=== PATIENT | female | born 1980 | race African-American/Black ===

== ENCOUNTER 2017-02-26 21:37 | Emergency (ER) | payer OTHER ==
[~2017-02-26] VITALS: Ht 157.5 cm; Wt 54.4 kg
[2017-02-26] MEDS ORDERED: IV NORMAL SALINE 1,000ML 1,000 ML IV SCH (21:46)
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
[2017-02-26] MEDS ORDERED: 0.9 % SODIUM CHLORIDE 10 ML DISP.SYRIN. IV PRN (22:00)
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
[2017-02-26] MEDS ORDERED: NAPR275T59 PO (23:11)
[2017-02-26] MEDS ORDERED: BACI3.5O8 TOP (23:11)
[2017-02-26] MEDS ORDERED: HYDR-2758 PO (23:11)
[2017-02-26] MEDS ORDERED: DIPHTH,PERTUSS(ACELL),TET TOX 0.5 ML DISP.SYRIN. VAX IM ONE ×2 (23:30→23:38)
[2017-02-26 23:40] VITALS: BP 110/54
[2017-02-26 23:50] LABS: BARBITURATES NEG (NEG); BENZODIAZEPINES NEG (NEG); CANNABINOIDS NEG (NEG); COCAINE NEG (NEG); METHADONE NEG (NEG); OPIATES NEG (NEG); PHENCYCLIDINE NEG (NEG)
[2017-02-26 23:53] LABS: AMPHETAMINE/METHAMPHETAMINE NEG (NEG)
== END 2017-02-26 23:46 | disposition home or self-care (01) ==
LOC: ER 21:37 → EDBD 21:37 → ER 23:46
DX: S02.2XXA Fracture of nasal bones, initial encounter for closed fracture (principal); F17.210 Nicotine dependence, cigarettes, uncomplicated; R04.0 Epistaxis; Y04.0XXA Assault by unarmed brawl or fight, initial encounter; Y93.89 Activity, other specified; Y99.8 Other external cause status; Y92.89 Other specified places as the place of occurrence of the external cause
CPT/HCPCS: 12011; 36415; 70450; 70486; 72125; 80307; 81025; 90471; 90715; 96360; 99285; G0480; G0479; J7030